=== PATIENT | female | born 1965 | race Hispanic/Latino ===

== ENCOUNTER 2019-07-08 13:27 | Outpatient (CLI) | payer OTHER ==
--- NOTE | 2019-07-08 14:34 | CT ---
Exam: POSTCONTRAST SOFT TISSUE NECK CT: HISTORY: Lymphadenopathy. COMPARISON: None. CORRELATION: Face CT 06/25/2019. FINDINGS: Visualized brain parenchyma is unremarkable. Orbits: Bilateral ocular lenses are appropriately located. Both globes are intact. Retrobulbar fat is preserved. Symmetric attenuation the optic nerves and ocular rectus muscles. Visualized sinuses are adequately aerated. Aerodigestive tract is patent. No mucosal abnormality. No obvious masses in the oral cavity. Midline fatty raphae of the tongue is preserved. Epiglottis has a normal caliber. Preepiglottic fat is preserved. Supraglottic, glottic and subglottic larynx are unremarkable. Mixed attenuation hypodense mass in the right thyroid lobe measures 1.6 x 2.6 cm. Predominantly hypodense 1.1 x 1.2 cm mass in the right thyroid lobe. Symmetric attenuation of the parotid and submandibular glands. Cervical spine vertebral body height is maintained. No fracture. Straightening of normal cervical sydnie dosis. There are varying degrees of central canal stenosis and foraminal narrowing on the basis of degenerative change. Grossly the great vessels of the neck are unremarkable. No acute abnormality in the visualized lung parenchyma and mediastinum. Lymph nodes: There are enlarged left intraparotid lymph nodes measuring 1.5 x 1.0, 1.0 x 0.9 cm. Enla rged left level 2 lymph node measures 1.6 x 1.0 cm, enlarged left level 5 lymph node measures 1.3 x 0.9 cm. Additional left neck lymph nodes are noted. No significant right neck lymphadenopathy. No sig nificant supraclavicular lymphadenopathy. IMPRESSION: 1. Enlarged left neck lymph nodes which are presumed to be due to infectious, inflammatory or neoplas tic process. 2. Two separate masses in the right thyroid gland, incompletely evaluated. Nonemergent thyroid ultras ound.
[2019-07-08] MEDS ORDERED: Iopamidol-370 76% 500 ML 1 ML ONE (14:54)
--- NOTE | 2019-07-08 15:09 | CT ---
Exam: Chest CT with contrast Abdomen CT with contrast Pelvic CT with contrast HISTORY: Lymphadenopathy. Correlation: None COMPARISON: None FINDINGS: Chest CT: Mediastinum: No mass, lymphadenopathy or hematoma Axilla and lower neck: No axillary lymphadenopathy. Refer to separate soft tissue neck CT report for further details with regards the lower neck Aorta: Normal caliber. No periaortic fat stranding Heart: Normal heart size. No significant pericardial fluid Trachea and central bronchi: Patent Pleural spaces: No pleural effusion or pneumothorax. Right lung: No suspicious masses or consolidation. Dependent atelectatic changes. Left lung:No suspicious masses or consolidation. Dependent atelectatic changes. Pneumothorax: None Abdomen CT: Gallbladder: Surgically absentPortal vein: Patent Liver: Hypoattenuation due to hepatic steatosis. No enhancing masses in the liver.. Spleen: Appropriate enhancement Pancreas: Appropriate enhancement Adrenal glands: Appropriate enhancement Lymphadenopathy: No gastrohepatic, retrocrural or periportal lymphadenopathy Kidneys: Symmetric enhancement. Bilaterally no obstructive uropathy. 1 cm hypodensity in the left kid candy, too small to further characterize. Mesentery: No mass, lymphadenopathy, free air or free fluid Alimentary canal: Limited evaluation by the absence of oral contrast. No evidence of bowel obstructio n. Unremarkable ileocecal junction. Normal caliber appendix. Scattered fecal material in a nondistended, nondilated colon. Pelvis CT: Uterus and right adnexa are unremarkable. Hypodensity in the left hemipelvis measures 6.4 x 5.4 cm wi th an attenuation coefficient of 19 Hounsfield units compatible with a large left ovarian cyst. No pelvic mass, lymphadenopathy, free air or free fluid. Unremarkable urinary bladder Osseous structures:There are no lytic or blastic lesions within the osseous structures. IMPRESSION: 1. No evidence of lymphadenopathy in the chest, abdomen or pelvis. 2. Left ovarian cyst. Follow-up ultrasound in 8 weeks to ensure resolution. CODE T
== END 2019-07-08 13:28 | disposition home or self-care (01) ==
LOC: BICCT 13:27
PROVIDERS: ATTEND Family Medicine
DX: R59.0 Localized enlarged lymph nodes (principal); E07.89 Other specified disorders of thyroid; N83.202 Unspecified ovarian cyst, left side
CPT/HCPCS: 70491; 71260; 74177; Q9967